=== PATIENT | male | born 1955 | race Hispanic/Latino ===

== ENCOUNTER → 2017-03-09 | Outpatient (CLI) | payer OTHER ==
[2017-03-09 17:46] LABS: BASOPHILS # (AUTO) 0.06 10*3/UL; BASOPHILS % (AUTO) 0.6 % (0-1); EOSINOPHILS # (AUTO) 0.22 10*3/UL; EOSINOPHILS % (AUTO) 2.2 % (0-8); HEMATOCRIT 46.8 % (42.0-52.0); HEMOGLOBIN 15.9 g/dL (14.0-18.0); LYMPHOCYTES # (AUTO) 3.21 10*3/uL; MEAN CORPUSCULAR HEMOGLOBIN 30.5 PG (27-31); MEAN CORPUSCULAR VOLUME 89.8 FL (80-90); MEAN PLATELET VOLUME 10.7 FL (7.4-12.2); MONOCYTES # (AUTO) 0.86 10*3/UL (0.3-0.8); MONOCYTES % (AUTO) 8.7 % (5-15); NEUTROPHILS # (AUTO) 5.47 10*3/UL; NEUTROPHILS % (AUTO) 55.6 % (50-80); RED BLOOD COUNT 5.21 10^6/uL (4.70-6.10)
[2017-03-09 17:51] LABS: PLATELET MORPHOLOGY COMMENT NORMAL MORPHOLOGY (NORM); RBC MORPHOLOGY COMMENT NORMAL MORPHOLOGY (NORM); WBC MORPHOLOGY COMMENT NORMAL MORPHOLOGY (NORM)
[2017-03-09 17:59] LABS: BLOOD UREA NITROGEN 17 mg/dL (7-22); BUN/CREATININE RATIO 18.88 (6-20); EST GLOMERULAR FILTRATION > 60 (>60 ml/min/1.73m(2))
[2017-03-09 18:02] LABS: CREATININE, URINE 331.9 MG/DL (15-500)
[2017-03-09 18:04] LABS: HEMOGLOBIN A1C 10.69 % (4.2-6.0)
[2017-03-09 18:33] LABS: VITAMIN D 25-HYDROXY < 12.8 NG/ML (30-100)
[2017-03-09 18:59] LABS: FREE T4 (FREE THYROXINE) 1.75 ng/dL (0.93-1.71)
== END ==
LOC: LAB 08:25
PROVIDERS: ATTEND Nurse Practitioner Family
DX: E55.9 Vitamin D deficiency, unspecified (principal); E03.9 Hypothyroidism, unspecified; I10 Essential (primary) hypertension; E78.5 Hyperlipidemia, unspecified; I50.9 Heart failure, unspecified; R06.00 Dyspnea, unspecified; E11.9 Type 2 diabetes mellitus without complications; Z79.4 Long term (current) use of insulin; I48.91 Unspecified atrial fibrillation; Z11.59 Encounter for screening for other viral diseases
CPT/HCPCS: 36415; 80053; 82043; 82306; 83036; 83880; 84439; 84443; 85025; 86803

== ENCOUNTER → 2017-03-13 | Outpatient (CLI) | payer OTHER | LOC: LAB 08:58 | PROVIDERS: ATTEND Nurse Practitioner Family | DX: I50.33 Acute on chronic diastolic (congestive) heart failure (principal) | CPT/HCPCS: 83880 ==

== ENCOUNTER → 2017-03-24 | Outpatient (CLI) | payer OTHER ==
[2017-03-24 12:43] LABS: BLOOD UREA NITROGEN 27 mg/dL (7-22); BUN/CREATININE RATIO 24.54 (6-20); CALCIUM 9.5 mg/dL (8.7-10.7); EST GLOMERULAR FILTRATION > 60 (>60 ml/min/1.73m(2))
== END ==
LOC: LAB 08:15
PROVIDERS: ATTEND Internal Medicine Cardiovascular Disease
DX: E11.40 Type 2 diabetes mellitus with diabetic neuropathy, unspecified (principal); Z79.4 Long term (current) use of insulin
CPT/HCPCS: 80048

== ENCOUNTER → 2017-04-19 | Outpatient (CLI) | payer OTHER ==
[2017-04-19 17:41] LABS: CHOL/HDL RATIO 3.41 RATIO (0-4.0); LDL CHOLESTEROL,CALCULATED 80.6 mg/dL
[2017-04-19 17:42] LABS: BLOOD UREA NITROGEN 30 mg/dL (7-22); CALCIUM 9.9 mg/dL (8.7-10.7); EST GLOMERULAR FILTRATION > 60 (>60 ml/min/1.73m(2))
== END ==
LOC: LAB 08:54
PROVIDERS: ATTEND Nurse Practitioner Family
DX: E03.9 Hypothyroidism, unspecified (principal); I10 Essential (primary) hypertension; I50.9 Heart failure, unspecified
CPT/HCPCS: 80053; 80061; 83880; 84443

== ENCOUNTER 2018-10-08 09:55 | Observation (INO) ==
[~2018-10-08 09:55] MED LIST: LIDOCAINE W/ SODIUM BICARB 0.5 ML SYR ONE; LIDOCAINE W/ SODIUM BICARB 0.5 ML SYR SUBD PRN; Lactated Ringers 1,000 ML PRIMARY IV ONE
[2018-10-08] MEDS: Lactated Ringers 1,000 ML PRIMARY IV SCH ×2 (11:07→18:59)
[2018-10-08] MEDS ORDERED: LIDOCAINE MPF 2% - 5 ML (20 MG/1 ML) ONE ×2 (11:16→16:17)
[2018-10-08] MEDS ORDERED: PROPOFOL 10 MG/1 ML (200 MG/20 ML) VIAL IV ONE (11:16)
[2018-10-08] MEDS ORDERED: fentaNYL Inj 250 MCG/5 ML VIAL ONE (11:16)
[2018-10-08] MEDS ORDERED: MIDAZOLAM HCL 2 MG/2 ML VIAL ONE (11:16)
[2018-10-08] MEDS ORDERED: ONDANSETRON 4 MG/2 ML VIAL ONE ×2 (11:33→18:06)
[2018-10-08] MEDS ORDERED: LIDOCAINE HCL 1%/EPI 1:100,000 - 20 ML VIAL ONE (12:02)
[2018-10-08] MEDS ORDERED: ROCURONIUM 10 MG/1 ML - 5 ML VIAL IVP ONE (12:26)
[2018-10-08] MEDS ORDERED: ceFAZolin Inj 2gm (Premix) 2 GM/50 ML BAG IV ONE ×2 (13:24→13:38)
[2018-10-08] MEDS ORDERED: Lactated Ringers 1,000 ML PRIMARY IV ONE ×2 (13:43→15:59)
[2018-10-08] MEDS ORDERED: BACITRACIN 0.9 GM PACKET OINT TOPICAL ONE (14:32)
[2018-10-08] MEDS ORDERED: ceFAZolin Inj 1 GM in Sodium Chloride 0.9% 100 ML IV ONE (16:35)
--- NOTE | 2018-10-08 16:39 | CRNA.PROGR ---
Anesthesia Recovery Phase I - Post Anesthesia Evaluation Patient's Condition on Arrival in Phase I: Stable Patient's Condition on Arrival in Phase II: Stable Pain Level: 3 ("sore, not painful" his words)
[2018-10-08] MEDS ORDERED: ATROPINE SULFATE 0.4 MG/1 ML VIAL IVP PRN (16:40)
[2018-10-08] MEDS ORDERED: fentaNYL Inj 100 MCG/2 ML VIAL IVP PRN (16:40)
[2018-10-08] MEDS ORDERED: Ondansetron ODT Tab 8 MG TAB PO PRN (16:40)
[2018-10-08] MEDS ORDERED: Prochlorperazine Edisylate Inj 10mg/2ml vial IVP PRN (16:40)
[2018-10-08] MEDS ORDERED: HYDROmorphone 2 MG/1 ML IVP PRN (16:40)
[2018-10-08] MEDS ORDERED: ONDANSETRON 4 MG/2 ML VIAL IVP PRN (16:40)
[2018-10-08] MEDS ORDERED: LIDOCAINE W/ SODIUM BICARB 0.5 ML SYR SUBD PRN (16:40)
--- NOTE | 2018-10-08 16:40 | CRNA.PROGR ---
Post Anesthesia Phase II - Post Anesthesia Phase II Patient Stable and Discharged To: Phase II Care Assumed By Surgeon: Rafael Lopez MD Temperature: 97.2 F Pulse Rate: 75 Respiratory Rate: 20 Blood Pressure: 129/84 Pulse Ox: 98 Total Phyllis Score at Discharge: 9 Post Anesthesia Discharge Criteria Met: Yes
--- NOTE | 2018-10-08 16:40 | CRNA.PROGR ---
Anesthesia Time - Procedure/Recovery Time Start Date: 10/08/18 End Date: 10/08/18 Anesthesia : Time In: 12:53 Anesthesia : Time Out: 16:35 Anesthesia : Total Time: 222 - Total Anesthesia Time Total Anesthesia Time (minutes): 222 - Other Weight: 97.976 kg Height: 5 ft 11 in Body Mass Index (BMI): 30.1 Physical Status: P2 Anesthesia Type: General Anesthesia : ET
[2018-10-08] MEDS ORDERED: ceFAZolin 1 GM VIAL ONE (16:42)
[2018-10-08] MEDS ORDERED: Sodium Chloride 0.9% 100 ML IV ONE (16:42)
[2018-10-08] MEDS ORDERED: HYDROcodone-APAP 7.5 MG-325 MG TABLET PO PRN (16:43)
[2018-10-08] MEDS ORDERED: Lactated Ringers 1,000 ML PRIMARY IV SCH (16:45)
--- NOTE | 2018-10-08 16:46 | ENT.OPNOTE ---
Operative Note -: See Dictated Operative Report
[2018-10-08] MEDS: HYDROcodone-APAP 5 MG -325 MG TABLET PO PRN ×2 (17:13→21:06)
[2018-10-08] MEDS ORDERED: CARVEDILOL 12.5 MG TABLET PO SCH (17:45)
[2018-10-08] MEDS ORDERED: LISINOPRIL 20 MG TABLET PO SCH ×2 (17:45→18:00)
[2018-10-08] MEDS ORDERED: DILTIAZEM HCL CD 120 MG CAP PO SCH (18:00)
[2018-10-08] MEDS: ONDANSETRON 4 MG/2 ML VIAL IVP PRN (18:01)
[2018-10-08] MEDS: DIGOXIN 125 MCG TABLET PO SCH ×2 (18:58→19:01)
[2018-10-08] MEDS: GABAPENTIN 100 MG CAPSULE PO SCH (20:33)
[2018-10-08] MEDS: Insulin Detemir 300unit/3ml Flexpen SUBCUT SCH (20:34)
[2018-10-08] MEDS ORDERED: CEPHALEXIN 500 MG CAPSULE PO SCH (21:00)
[2018-10-09] MEDS: HYDROcodone-APAP 5 MG -325 MG TABLET PO PRN ×3 (01:15→08:41)
[2018-10-09] MEDS: Lactated Ringers 1,000 ML PRIMARY IV SCH (04:42)
[2018-10-09 04:59] VITALS: RESP 16
[2018-10-09] MEDS ORDERED: LEVOTHYROXINE 25 MCG TABLET PO SCH (05:30)
[2018-10-09 06:26] VITALS: TEMP 97.7; O2SAT 92
[2018-10-09] MEDS ORDERED: FUROSEMIDE 40 MG TABLET PO SCH (07:00)
[2018-10-09] MEDS ORDERED: Spironolactone Tab 25 MG TAB PO SCH ×2 (07:00→09:00)
[2018-10-09] MEDS: ONDANSETRON 4 MG/2 ML VIAL IVP PRN (07:22)
--- NOTE | 2018-10-09 08:43 | CONSULT ---
Consult Note - Consult Consult Date: 10/09/18 Reason for Consult: PostOp Consulation : ENT Requesting Physician: Dr. Lopez Primary Care Provider: Anthony Recinos DNP - History of Present Illness History of Present Illness: This is a 63 years old male with medical history significant for history of hypertension, diabetes, chronic atrial fibrillation, hypothyroidism, history of hypertension, history of congestive heart failure unknown type and history of thyroglossal duct cyst for which he had surgery yesterday the hospitalist service were consulted for management of medical issues postoperatively. Patient is denying symptoms currently. There is no chest pain, did say he vomited earlier but he is not sick to his stomach currently. There is no significant pain. He did say that he was warfarin and last time he took it was last . For his blood pressure he didn't take lisinopril since . He did see Dr. Marroquin prior to surgery who cleared him for surgery and recommended an EKG and troponin postsurgery. Past Medical History Medical History: 1. History of diabetes on Levemir and Victoza. 2. History of hypertension. 3. History of coronary artery disease with previous CT but no history of interventions before. 4. History of atrial fibrillation on anticoagulation. 5. History of congestive heart failure unknown type. 6. Hi story of neuropathy. 7. History of vitamin D deficiency. 8. History of hypothyroidism Surgical History: History of appendectomy Family History: Reviewed an Not Pertinent Past Social History: Used to smoke and drink, no drugs. Tobacco Use: Former Smoker In the Past 12 Months, Have Used or Abuse Any of the Following Substance: None Alcohol Use: Other (He said he used to drink.) Review of Systems - Review of Systems All Systems: Reviewed & No Additional Complaints Except as Stated Medication / Allergies Home Medications: Home Medications Medication Instructions Recorded Confirmed Type blood sugar diagnostic strips 1 strip MISCELLANEOUS QID #100 ea 07/31/17 10/05/18 Rx ipratropium-albuterol 0.5 mg-3 3 ml INH Q4H PRN #25 vial 01/23/18 10/05/18 Rx mg(2.5 mg base)/3 mL nebulization soln sildenafil 25 mg tablet 25 mg PO QDAY PRN #14 tab 05/04/18 10/05/18 Rx carvedilol 12.5 mg tablet 12.5 mg PO QD #90 tab 07/09/18 10/05/18 Rx cholecalciferol (vitamin D3) 1,000 1,000 unit PO QDAY #90 cap 07/09/18 10/05/18 Rx unit capsule digoxin 125 mcg tablet 125 mcg PO DAILY #90 tab 07/09/18 10/05/18 Rx diltiazem CD 120 mg 120 mg PO DAILY #90 cap 07/09/18 10/05/18 Rx capsule,extended release 24 hr furosemide 40 mg tablet 40 mg PO DAILY #90 tab 07/09/18 10/05/18 Rx gabapentin 100 mg capsule 100 mg PO TID #270 cap 07/09/18 10/05/18 Rx insulin detemir (U-100) 100 40 unit SUBCUT BID #15 ml 07/09/18 10/05/18 Rx unit/mL (3 mL) subcutaneous pen levothyroxine 25 mcg tablet 25 mcg PO QAM #90 tab 07/09/18 10/05/18 Rx liraglutide 0.6 mg/0.1 mL (18 mg/3 1.2 mg SUBCUT DAILY #9 ml 07/09/18 10/05/18 Rx mL) subcutaneous pen injector lisinopril 20 mg tablet 20 mg PO DAILY #90 tab 07/09/18 10/05/18 Rx spironolactone 25 mg tablet 25 mg PO DAILY #90 tab 07/09/18 10/05/18 Rx warfarin 5 mg tablet 5 mg PO DAILY #60 tab 07/09/18 10/05/18 Rx aspirin 81 mg tablet,delayed 81 mg PO QDAY 09/28/18 10/05/18 History release Cephalexin [Keflex] 500 mg PO TID #30 cap 10/08/18 Rx HYDROcodone/APAP 7.5/325 Tab 1 tab PO Q4H PRN #30 tab 10/08/18 Rx [Ryan 7.5/325 Tab] Allergies/Adverse Reactions: Allergies Allergy/AdvReac Type Severity Reaction Status Date / Time No Known Allergies Allergy Verified 09/28/18 13:12 Exam - Vitals Vital Signs: Vital Signs Temperature 97.7 F Temperature Source Temporal Artery Scan Pulse Rate [Pulse Oximeter] 86 Pulse Rate 98 Respiratory Rate 16 Blood Pressure [Left Arm] 99/75 Blood Pressure 150/113 Pulse Ox 92 Oxygen Flow Rate 1 Oxygen Delivery Method Nasal Cannula Height 5 ft 11 in Weight 225 lb - General General Appearance: No Acute Distress, Cooperative - Head Head Exam: Normal Inspection - Eye Eye Exam: POSITIVE: Normal Appearance - ENT ENT Exam: POSITIVE: Normal Exam - Neck Additional Neck Exam Details: Wound looks clean drain is noted in the neck. - Respiratory Respiratory Exam: POSITIVE: Clear to Auscultation - Bilaterally - Cardiovascular Cardiovascular Exam: POSITIVE: Irregular Rhythm - GI/Abdominal GI/Abdominal Exam: POSITIVE: Normal Bowel Sounds, Non Tender, Non Distended, Soft - Rectal Rectal Exam: POSITIVE: Deferred - External Exam: POSITIVE: Deferred - Extremities Extremities Exam: POSITIVE: Normal Inspection - Back Back Exam: POSITIVE: Normal Inspection - Neurological Neurological Exam: POSITIVE: Alert, Oriented x 3, CN II-XII Intact, Speech Intact / Clear, Moves All Extremities Equally - Psychiatric Psychiatric Exam: POSITIVE: Normal Affect - Integumentary Integumentary Exam: POSITIVE: Normal Color Assessment and Plan - Patient Problems (1) Essential hypertension Current Visit: No Status: Acute Onset Date: 04/10/17 Comment: His blood pressure is borderline today I think I'll hold his Coreg, Cardizem and lisinopril. He said he's been holding the lisinopril since last . However last night he did receive a dosage of lisinopril. He did not take his Coreg at home but he did receive a Coreg dosage after the surgery last night. He said he did take the Cardizem in the morning yesterday but for some reason he did receive another dosage of Cardizem last night. He did not take his diuretics yesterday. I think receiving the lisinopril, doubling the Cardizem in addition to the surgery and medication from anesthetic is primary reason for his blood pressure being borderline and will hold all those medications. He did receive the diuretic this morning. Code(s): I10 - Essential (primary) hypertension (2) Hypothyroidism Current Visit: No Status: Acute Onset Date: 04/10/17 Comment: Same med Code(s): E03.9 - Hypothyroidism, unspecified (3) Chronic congestive heart failure Current Visit: No Status: Acute Onset Date: 03/08/17 Comment: There is a history of congestive heart failure unknown type he already received his diuretics. As I said his blood pressure is borderline I think I'll continue with the digoxin hold his a lisinopril, Coreg and Cardizem. We'll see what happens with his blood pressure the next few hours if things remain stable probably can discharge him home to watch his blood pressure at home and restart his medication gradually tomorrow. 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 fib rate is controlled at 77. I think will give him his digoxin. We'll hold the Coumadin until it's okay by the surgeon my understanding is that he wants him be off until he pulled the drain out on . Regarding the Cardizem and the Coreg as I said we are planning on holding those but will watch him for few hours post the digoxin and see what his heart rate and blood pressure and then decide if we continue to hold or not but likely we will because of borderline blood pressure. Code(s): I48.2 - Chronic atrial fibrillation
[2018-10-09] MEDS: Insulin Detemir 300unit/3ml Flexpen SUBCUT SCH (08:44)
[2018-10-09] MEDS: GABAPENTIN 100 MG CAPSULE PO SCH (08:45)
[2018-10-09] MEDS ORDERED: Bacitracin Oint 14.2 gm tube 14 APPLIC/14.2 GM TUBE TOPICAL SCH (09:00)
[2018-10-09] MEDS ORDERED: DIGOXIN 125 MCG TABLET PO SCH (09:00)
[2018-10-09] MEDS ORDERED: CEPHALEXIN 500 MG CAPSULE PO SCH (09:00)
[2018-10-09 10:33] VITALS: BP 107/61
--- NOTE | 2018-10-09 13:36 | EKG ---
[address] [place] [address] Measurements Intervals [place] Rate: 77 P: VA: 0 QRS: -19 QRSD: 106 T: 95 QT: 370 QTc: 402 Interpretive Statements ATRIAL FIBRILLATION NONSPECIFIC T-WAVE ABNORMALITY Compared to ECG 09/28/2018 13:33:15 Ventricular premature complex(es) no longer present Aberrant conduction of supraventricular beat(s) no longer present T-wave abnormality still present Electronically Signed On 10-09-18 14:03:56 MST by Deacon Beal MD [email or web address]
== END 2018-10-09 10:40 | disposition home or self-care (01) ==
LOC: MED/SURG 09:55 → OR 09:55
PROVIDERS: ADMIT Otolaryngology; ATTEND Otolaryngology